=== PATIENT | female | born 1995 | race Caucasian/White ===

== ENCOUNTER 2022-01-09 13:43 | Outpatient (CLI) | payer OTHER, SELFPAY ==
--- NOTE | 2022-01-09 14:00 | CRLHL7_ITS ---
For Patients: As a result of the Cures Act, medical imaging exams and procedure reports are released immediately into your electronic medical record. You may view this report before your referring provider. If you have questions, please contact your health care provider. INDICATION: First trimester scan, establish dates. COMPARISON: None. TECHNIQUE: Real-time vidal-scale imaging of the pelvis was performed. FINDINGS: Sonographic imaging demonstrates a single living intrauterine gestation. The embryo demonstrates a regular cardiac rate measuring 180 beats per minute. The embryo`s crown-rump length measurement of 2.5 cm corresponds to a gestational age of 9 weeks 1 day with a sonographic due date of 08/13/2022. There is a normal-appearing yolk sac. There are no gross abnormalities noted within the embryo at this early state of development. The gestational sac has a normal appearance. There is no evidence of a perigestational hemorrhage. The amount of fluid within the sac appears appropriate for gestational age. The cervix is closed. The myometrium appears normal. The ovaries are of normal size. Corpus luteal cyst in the right ovary. There are no suspicious fluid collections noted in the cul-de-sac. IMPRESSION: Normal first trimester OB ultrasound exam. Gestational age calculated at 9 weeks 1 day with a sonographic due date of 08/13/2022. Dictated by Tarik Merino MD @ 01/09/2022 2:43:52 PM (Electronically Signed)
== END 2022-01-09 13:44 | disposition home or self-care (01) ==
LOC: US 13:46
PROVIDERS: Visit Provider Advanced Practice Midwife
DX: Z34.91 Encounter for supervision of normal pregnancy, unspecified, first trimester (principal); Z3A.09 9 weeks gestation of pregnancy
CPT/HCPCS: 76801

== ENCOUNTER 2022-01-10 13:04 | Outpatient (CLI) | payer OTHER, SELFPAY ==
[2022-01-10 18:19] LABS: Hepatitis B Surface Antigen* Negative (Negative)
[2022-01-10 18:28] LABS: HIV 1/2/P24 Combo Screen* Negative (Negative)
[2022-01-10 18:36] LABS: Hepatitis C Virus Antibody* Negative (Negative)
[2022-01-13 00:58] LABS: Rapid Plasma Reagin (RPR) Non Reactive (Non Reactive)
[2022-01-13 04:34] LABS: Rubella Antibody IgG 50.8 IU/mL
== END 2022-01-10 13:05 | disposition home or self-care (01) ==
LOC: NFLDREF 13:05
PROVIDERS: Visit Provider Advanced Practice Midwife
DX: Z34.81 Encounter for supervision of other normal pregnancy, first trimester (principal); Z3A.08 8 weeks gestation of pregnancy
CPT/HCPCS: 86592; 86703; 86762; 86787; 86803; 86850; 86900; 86901; 87086; 87340

== ENCOUNTER 2022-04-07 10:45 | Outpatient (CLI) | payer OTHER, SELFPAY ==
--- NOTE | 2022-04-07 11:00 | CRLHL7_ITS ---
For Patients: As a result of the Century Cures Act, medical imaging exams and procedure reports are released immediately into your electronic medical record. You may view this report before your referring provider. If you have questions, please contact your health care provider. INDICATION: Evaluate anatomy. COMPARISON: 01/09/2022 TECHNIQUE: Real time vidal scale imaging of the fetus was performed as well as color Doppler analysis of the umbilical vessels. FINDINGS: Sonographic imaging demonstrates a single living intrauterine gestation. Fetus demonstrates abnormal cardiac activity with numerous decelerations and pauses lasting 5-10 seconds. Average heart rate 123 beats per minute. Fetus has a variable position. The placenta lies anteriorly without evidence of placenta previa. The edge of the placenta is located 4.6 cm from the internal cervical os. Amniotic fluid volume appears normal. Single deepest vertical pocket: 4.9 cm. The cervix is closed and measures 3.9 cm in length. The composite ultrasound gestational age is calculated at 21 weeks 4 days with an estimated sonographic due date of 08/14/2022. The estimated weight is 445 grams which lies at the 68th %. The following biometric measurements were obtained: Biparietal diameter: 5.0 cm/21 weeks 0 days 39th% Head circumference: 18.9 cm/21 weeks 2 days 37th% Abdominal circumference: 16.6 cm/21 weeks 5 days 56th% Femur length: 3.8 cm/22 weeks 0 days 65th% The HC/AC ratio measures: 1.14 range (1.06-1.24) On anatomic survey, there is a normal appearance of the cerebral ventricles, cavum septi pellucidi, cisterna magna and cerebellum. The nose, lips, and facial profile appear normal. The cervical, thoracic and lumbar spine are well visualized and appear normal. There is a normal four-chamber heart view and the left and right ventricular outflow tracts appear normal. The diaphragm and stomach appear normal. The kidneys and bladder also appear normal. There is a normal three-vessel cord and there is an eccentric cord insertion site located 2.7 cm from the right edge of the placenta. The four extremities appear normal. IMPRESSION: cardiac activity demonstrated numerous decelerations during the exam along with pauses lasting 5-10 seconds. Emergent sub specially referral for cardiac ECHO recommended. This was communicated to the referring provider by the animal nutritionist. Anatomic survey normal. Concordant dates. Dictated by Tarik Merino MD @ 04/07/2022 12:56:48 PM (Electronically Signed)
== END 2022-04-07 10:46 | disposition home or self-care (01) ==
LOC: US 10:46
PROVIDERS: Visit Provider Advanced Practice Midwife
DX: O36.8320 Maternal care for abnormalities of the fetal heart rate or rhythm, second trimester, not applicable or unspecified (principal); Z3A.21 21 weeks gestation of pregnancy
CPT/HCPCS: 76805; 86235

== ENCOUNTER 2022-06-20 08:08 | Outpatient (CLI) | payer OTHER, SELFPAY ==
[2022-06-22 05:09] LABS: Rapid Plasma Reagin (RPR) Non Reactive (Non Reactive)
== END 2022-06-20 08:09 | disposition home or self-care (01) ==
LOC: NFLDREF 08:09
PROVIDERS: Visit Provider Advanced Practice Midwife
DX: Z34.93 Encounter for supervision of normal pregnancy, unspecified, third trimester (principal); Z3A.31 31 weeks gestation of pregnancy
CPT/HCPCS: 86592

== ENCOUNTER 2022-07-14 12:01 | Outpatient (CLI) | payer OTHER, SELFPAY ==
[2022-07-15 11:29] LABS: Strep B DNA Probe NEGATIVE (Negative)
[2022-07-15 13:27] LABS: Strep B Pen/Amox Allergy No
== END 2022-07-14 12:02 | disposition home or self-care (01) ==
LOC: NFLDREF 12:01
PROVIDERS: Visit Provider Advanced Practice Midwife
DX: Z34.93 Encounter for supervision of normal pregnancy, unspecified, third trimester (principal); Z3A.35 35 weeks gestation of pregnancy
CPT/HCPCS: 87081; 87653

== ENCOUNTER 2022-08-14 21:50 | Inpatient (IN) | payer OTHER, SELFPAY ==
[2022-08-14] VITALS (17 sets, daily range): BP systolic 95–133; BP diastolic 51–79; PULSE 16–94; TEMP 36.8; O2SAT 97–100
[2022-08-14] MEDS: LACTATED RINGERS 1000 ML 1,000 ML 925 ML IV (22:40)
[2022-08-14] MEDS: ROPIVACAINE 0.2% 100 ml 100 ML 12 MG EPIDURAL (23:25)
[2022-08-14] MEDS: LIDOCAINE 2% (PF) 5 ML VIAL EPIDURAL (23:25)
--- NOTE | 2022-08-14 23:36 | P.ANBPRC_ITS ---
[facility] Medical History (Updated 04/07/22 @ 14:14 by Altagracia Taylor CNM) Kidney stones care Surgical History Hx of wisdom tooth extraction Family History Maternal Grandmother Diabetes Paternal Grandmother Diabetes Social History (Updated 08/14/22 @ 11:57 by Annette Dacosta MD) Narrative: Lives in [facility] with Significant other: Miguel, Chrissy Cervantes Lives with partner and daughter Jidd-we-txkb parent no tob / ETOH / ilicits What is your current living situation: I presently have a place to live Problems where you live: no known problems In the past 12 months, utilities in danger of being shut off: no In past 12 months, lack of transportation kept you from medical appts, meetings, work, or getting things needed for daily living: No How hard is it for you to pay for the very basics like food, housing, medical care, and heating: not very hard Past 12 mos, fear food will run out before able to buy more: never true In past 12 months, food didn't last until money to buy more: never true Are you following a diet prescribed by a doctor: No Are you following a special diet: No Do you want help finding or keeping work or a job: I do not need or want help 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 Highest level of school completed/degree received: high school graduate Physical activity type: walking How many days of moderate to strenuous exercise, like a brisk walk, did you do in the last 7 days: 7 Smoking Status: Never smoker Do you use any of these nicotine containing products: None Nicotine containing products detail: History of e-cig, just in high school Second hand tobacco smoke exposure: No How often do you have a drink containing alcohol: never AUDIT-C Alcohol total score: 0 Non-prescribed substance use: denies use Non-prescribed substance use details: Alcohol casually prior to Caffeine: Yes (1 cup per day) Are you now , , , , never or living with a partner: living with partner In a typical week, how many times do you talk on the telephone with family, friends, or neighbors: three or more times per week How often do you get together with friends or relatives?: twice per week How often do you attend presybeterian or pentecostalism services?: decline to answer Do you belong to any clubs or organizations such as presybeterian groups unions, [employer] or athletic groups, or school groups?: no Social isolation score (0-1 are the most socially isolated patients): 2 Within the last year, have you been humiliated or emotionally abused in other ways by your partner or ex-partner: no Within the last year, have you been afraid of your partner or ex-partner: no Within the last year, have you been raped or forced to have any kind of sexual activity by your partner or ex-partner: no Within the last year, have you been kicked, hit, slapped, or otherwise physically hurt by your partner or ex-partner: no HARK total score: 0 Firearms in home: yes Firearms in home details: Lock away Do you need help with ADLs: I don't need any help Due to a physical, mental, or emotional condition, do you have difficulty doing errands alone such as visiting a doctor's office or shopping: No Little interest or pleasure in doing things: not at all Feeling down, depressed, or hopeless: not at all Are you currently sexually active: Yes Are you using contraception or practicing any form of control: No Meds Home Medications and Allergies Home Medications Medication Instructions Recorded Confirmed Type prenat.vits,nina,xxf-ojpu-eolsi 1 tab PO QDAY 01/09/22 08/14/22 History calcium carbonate 500 mg calcium 500 mg PO BID 08/07/22 08/14/22 History (1,250 mg) chewable tablet Allergies Allergy/AdvReac Type Severity Reaction Status Date / Time No Known Drug Allergies Allergy Verified 08/14/22 11:12 Results Vital Signs Vital Signs: Last Vital Signs Temp 98.2 F 08/14/22 21:32 Pulse 94 08/14/22 23:32 BP 111/56 L 08/14/22 23:32 Pulse Ox 97 08/14/22 23:29 Anesthesia Procedures Epidural Insertion Patient Location: OB Start Time: 22:45 Stop Time: 23:45 Start Date: 08/14/22 Stop Date: 08/14/22 Reason for Block: procedure for pain Patient Position: sitting Performed By: Peace Santamaria Preanesthetic Checklist: IV checked, risks and benefits discussed, surgical consent, monitors and equipment checked, pre-op evaluation, timeout performed and anesthesia consent Prep: chlorhexidine gluconate Monitoring: blood pressure monitoring, continuous pulse oximetry and heart rate Approach: midline Vertebral Space: lumbar (1-5) Epidural Technique: EMMA saline Needle Type: Tuohy needle Injection Technique: continuous catheter (continuous catheter) Needle gauge: 17 Needle Length (cm): 10 cm Needle Insertion Depth (cm): 7 Catheter Gauge: 19 Catheter Type: multi-orifice Catheter at skin depth (cm): 15 Test Dose Result: negative and lidocaine 1.5% with epinephrine 1 to 200,000
[2022-08-14] MEDS: LACTATED RINGERS 1000 ML 1,000 ML 125 ML IV (23:48)
[2022-08-15] VITALS (59 sets, daily range): BP systolic 83–143; BP diastolic 49–89; PULSE 65–121; RESP 15–18; TEMP 36.6–37.6; O2SAT 96–97; BMI 32.5
[2022-08-15 00:27] LABS: SARS PCR* Negative SARS-CoV-2 (Negative)
--- NOTE | 2022-08-15 01:21 | P.OBPN_ITS ---
Subjective Time Seen by Provider: 01:21 Date Seen: 08/15/22 Objective Vital Signs: Last Vital Signs Temp 98.2 F 08/14/22 21:32 Pulse 100 08/15/22 01:19 BP 111/53 L 08/15/22 01:19 Pulse Ox 97 08/14/22 23:29 Pelvic Exam Dilation (cm): 5 Effacement (%): 90 Station: -2 Contractions Monitor mode: External Contraction Frequency: q3 minutes Contraction pattern: Regular Contraction intensity: Moderate Assessment Status: Category l Nursing Home Variability: Moderate (6-25) Monitor Accelerations: Present Monitor Decelerations: None Maternal Status: Patient finally comfortable with epidural in place. Is happy she has reprieve fr om contraction pain. Would like to see if she can labor without pitocin and SROM on her own at this time. She is amenable to starting pitocin and AROM if her next check remains unchanged. Will recheck in 4 hours or sooner if indicated.
[2022-08-15] MEDS: ONDANSETRON 2 MG/ML inj 4 MG IV (05:30)
--- NOTE | 2022-08-15 05:39 | PM.OBPNL ---
Subjective Time Seen by Provider: 05:15 Date Seen: 08/15/22 Objective Vital Signs: Last Vital Signs Temp 98.6 F 08/15/22 03:12 Pulse 77 08/15/22 05:34 Resp 15 08/15/22 03:12 BP 105/63 08/15/22 05:34 Pulse Ox 97 08/14/22 23:29 Pelvic Exam Dilation (cm): 7 Effacement (%): 90 Station: -1 Contractions Monitor mode: External Contraction Frequency: q3 Contraction pattern: Regular Contraction intensity: Moderate Pitocin Rate (mU/min): 0 Assessment Assessment: active labor Station: -1 Amniotic Membrane Status: AROM Status: Category ll Heart Rate Baseline: 140 [employer] Variability: Moderate (6-25) Monitor Accelerations: Present Monitor Decelerations: Late Tracing Comments: Rare late decels corresponding with soft BP. LR bolus initiated with good recovery. Labor Progress: AROM performed at 0515. Patient is ok with pitocin PRN. Maternal Status: Endorses nausea. Epidural is working well. Patient is comfortable, unable to feel her contractions or any perineal pressure currently. Plan Plan: - Patient in active labor - Pitocin PRN
[2022-08-15] MEDS: LACTATED RINGERS 1000 ML 1,000 ML 125 ML IV (07:23)
[2022-08-15] MEDS: ROPIVACAINE 0.2% 100 ml 100 ML 12 MG EPIDURAL (07:29)
[2022-08-15] MEDS: OXYTOCIN 30 unit/500 ML in NS 30 UNIT/500 ML BAG 300 UNIT IVPB (10:39)
[2022-08-15] MEDS: LIDOCAINE 1 % PF 30 ML INJECTION (10:43)
--- NOTE | 2022-08-15 10:55 | W.PM.VAGDEL1 ---
Procedure Delivery date: 08/15/22 Procedure Done: [employer] Procedure Details: The patient is a 26 year-old G 2 P 1-0-0-1 woman admitted on 08/14/2022 at 39 Weeks, 5 Days gestation for labor.? Cervical exam on admission was 5.5 cm/90 % effaced/0 station with membranes intact in vertex presentation.? Contractions were every 2-5 minutes.? heart rate demonstrated baseline 150 bpm with moderate variability, positive accelerations, no decelerations; a category 1 tracing.? Labor onset:? 9:11 p.m. on 08/14/2022 ? Labor Analgesia:? Epidural AROM occurred at 5:23 a.m. on 08/15/2022 with clear fluid. ? Pitocin:? No ? Complete:? 8:45 a.m. ? Pushing:? Patient tried to push a few times at 8:45 a.m. but did not have the urge to push and was not moving vertex. Passive descent of head was allowed. She again began pushing 9:57 a.m.. ? heart tones during second stage were notable for increased baseline of 160. ? At 10:37 a.m. a viable female infant delivered in vertex BERTHA presentation over small first-degree perineal laceration via spontaneous vaginal delivery.? was placed on maternal abdomen.? Cord was clamped and cut after it ceased to pulse.? Nose and mouth were bulb suctioned.? weight pending.? 8 at 1 minute and 9 at 5 minutes.? Shoulder dystocia: No.? Nuchal cord: No. ? Placenta delivered spontaneously and complete at 10:45 a.m. with a 3 vessel cord. ? Mother and infant were stable after delivery. ? Lacerations:? Small first-degree perineal, repaired with 3 interrupted sutures of 3-0 Vicryl after infiltration with a small amount of 1% lidocaine. ? Blood loss: 50 mL. Blood loss measurement type: QBL ? Sponge and needles counts are correct.
[2022-08-16 04:10] VITALS: BP 104/67; PULSE 95; RESP 16; TEMP 36.5; O2SAT 98
[2022-08-16 07:13] LABS: Hemoglobin* 11.1 gm/dL (12.0-16.0)
[2022-08-16] MEDS: DOCUSATE SODIUM 100 MG CAPSULE PO (08:04)
--- NOTE | 2022-08-16 08:27 | PM.OBDSVD1 ---
DS: Providers Provider Date Seen: 08/16/22 Date of admission: 08/14/22 21:50 Primary care physician: Not a Local Provider Admitting Clinician: Fartun Galindo MD Attending Physician on discharge: Altagracia Taylor CNM DS: Diagnosis Discharge Diagnosis (1) care and examination immediately after delivery: Status: Acute (2) Lactating mother: Status: Acute Exam Narrative: Exam Narrative: GENERAL APPEARANCE:? normal affect, alert, no distress? MOOD:? appropriate? CHEST:? clear to auscultation? HEART:? regular rate and rhythm? ABDOMEN:? soft, non-tender the uterine fundus is 2 cm below Umbilicus, Midline and is appropriate for the stage of recovery.? PERINEUM:? mild edema of the perineum, there is a Perineal Laceration,? 1st degree, that is healing well.? EXTREMITIES:? normal and [] edema? Const: Vital Signs, click to edit/add: Vital Signs - 24 hr 08/15/22 08:35 08/15/22 08:49 08/15/22 08:56 Temperature 99.6 F Pulse Rate 93 121 H Pulse Rate [Pulse Oximeter] Respiratory Rate 16 Blood Pressure 122/75 143/89 H Blood Pressure [Le ft Arm] Pulse Oximetry Oxygen Delivery Ms thod 08/15/22 09:05 08/15/22 09:19 08/15/22 09:34 Temperature Pulse Rate 81 74 95 Pulse Rate [Pulse Oximeter] Respiratory Rate Blood Pressure 117/72 114/71 116/66 Blood Pressure [Le ft Arm] Pulse Oximetry Oxygen Delivery Ms thod 08/15/22 09:49 08/15/22 10:19 08/15/22 10:21 Temperature Pulse Rate 97 97 90 Pulse Rate [Pulse Oximeter] Respiratory Rate Blood Pressure 117/81 129/83 128/74 Blood Pressure [Le ft Arm] Pulse Oximetry Oxygen Delivery Ms thod 08/15/22 10:36 08/15/22 10:48 08/15/22 11:03 Temperature Pulse Rate 85 91 96 Pulse Rate [Pulse Oximeter] Respiratory Rate Blood Pressure 128/68 134/65 125/64 Blood Pressure [Le ft Arm] Pulse Oximetry Oxygen Delivery Ms thod 08/15/22 11:18 08/15/22 11:33 08/15/22 11:48 Temperature Pulse Rate 90 82 85 Pulse Rate [Pulse Oximeter] Respiratory Rate Blood Pressure 126/62 126/63 126/68 Blood Pressure [Le ft Arm] Pulse Oximetry Oxygen Delivery Me thod 08/15/22 12:03 08/15/22 12:18 08/15/22 12:33 Temperature Pulse Rate 82 78 80 Pulse Rate [Pulse Oximeter] Respiratory Rate Blood Pressure 119/63 128/63 131/64 Blood Pressure [Le ft Arm] Pulse Oximetry Oxygen Delivery Me thod 08/15/22 12:35 08/15/22 15:36 08/15/22 19:15 Temperature 99 F 98.8 F 98.2 F Pulse Rate Pulse Rate [Pulse Oximeter] 95 91 Respiratory Rate 16 18 16 Blood Pressure Blood Pressure [Le ft Arm] 121/72 118/70 Pulse Oximetry 96 97 Oxygen Delivery Me thod Room Air Room Air 08/15/22 23:45 08/16/22 04:10 Temperature 98 F 97.7 F Pulse Rate Pulse Rate [Pulse Oximeter] 85 95 Respiratory Rate 16 16 Blood Pressure Blood Pressure [Le ft Arm] 110/68 104/67 Pulse Oximetry 96 98 Oxygen Delivery Me thod Room Air Room Air OB - DS: Summary Hospital Course Hospital Course: The patient is a 26 year old G 2 P 2 at 40 0/7 weeks gestation that was admitted to the Center on 08/14/22 for spontaneous onset of labor. She had an uncomplicated vaginal delivery. She delivered a viable female infant. She is [breast/bottle] feeding. the patient has done well. The patient feels well.?The pain is well controlled with current medications. She has no new complaints.? Urinary output is adequate and she is voiding without difficulty. Has a good appetite, is tolerating a general diet, is passing flatus, and has not yet had a bowel movement.? Has small amount of rubra lochia.?She is ambulating well. She is and reports it is going ok. She does desire to continue to work on her skills and see today.?? Peripartum Data delivery method: Vaginal Laceration description: Perineal - 1st Degree [place] Infant Gender: Female Discharge Plan: Home Status at Discharge Functional status at discharge: independent ambulation Overall status at discharge: patient is progressing back to baseline Time Spent with Patient Time attestation: Total time spent providing and/or coordinating discharge services: Time spent: Less than 30 minutes Discharge Plan Discharge Disposition: Home, Self-Care Date of Admission: 08/14/22 21:50 Attending Provider on Discharge: Altagracia Taylor Primary Care Provider: Provider,Not a Local Condition: Stable Anticipated Discharge Date/Time: 08/16/22 12:00 Discharge Medications: New acetaminophen 500 mg Tablet 1,000 mg PO Q6H PRNQty: 0 0RF docusate sodium 100 mg Capsule 100 mg PO DAILY Qty: 0 0RF ibuprofen 600 mg Tablet 600 mg PO Q6H PRNQty: 60 0RF Continued prenat.vits,nina,ghe-pmcy-azxog Tablet 1 tab PO QDAY calcium carbonate 500 mg calcium (1,250 mg) tablet,chewable 500 mg PO BID Discharge Orders: Discharge Order (Routine); Ordered 08/16/22 Ordered By: Altagracia Taylor Patient Education: OB Over the Counter Medication Information, OB Vaginal/Breast Feeding Additional Instructions: Discharge instructions were reviewed with the patient including signs and symptoms of infection and home going medications Nothing vaginally for 6 weeks: no tampons or intercourse Off Work or School for 6 weeks 2-week visit: discuss infant feeding concerns, review control options and screen for anxiety/depression. 6-week visit for an annual exam. consultation services are available to all mothers and babies for the first year after delivery.? To make an appointment, please call [phone]. Activity Level: Activity as Tolerated Discharge Diet: Regular Follow Up Appointments: [facility] [Provider Group] (2 week and 6 week visit) Forms: [employer] Info Instructions
--- NOTE | 2022-08-16 10:15 | W.PM.LDBA ---
Subjective History of Present Illness Time Seen by Provider: 11:00 Date Seen: 08/14/22 Narrative: Patient is being admitted to Labor and Delivery for augmentation of labor. She is a 26 year old at weeks gestation. Her full history and physical was dictated by Dr. Dacosta on 08/14/2022. Please see this for details. Patient was 4 cm in clinic and had her membrane stripped on 08/14. She presents for increased contractions and was found of be 5.5 cm on presentation requesting epidural. OB - Problem Based A/P Additional Plan (1) Spontaneous onset of labor: Status: Acute Plan - Will admit for epidural placement and augmentation of labor as needed. OB Exam Physical Exam Vital signs: Temp Pulse Resp BP Pulse Ox O2 Del Method 97.7 F 95 16 104/67 98 08/16/22 04:10 08/16/22 04:10 08/16/22 04:10 08/16/22 04:10 08/16/22 04:10 08/16/22 04:10 Narrative: Physical exam: General: In labor pain Psych: Alert and oriented x3, full affect Heart: Regular rate and rhythm, no murmur rub or gallop Lungs: Clear to auscultation bilaterally Abdomen: Gravid. Soft without tenderness in between contractions. Lower extremities: No edema or erythema Pelvic exam: SVE 5.5/90/-2
[2022-08-16 12:43] VITALS: BP 110/69; PULSE 96; RESP 18; TEMP 36.6; O2SAT 99
== END 2022-08-16 13:20 | disposition home or self-care (01) | DRG 807 ==
PROVIDERS: Obstetrics & Gynecology; Admitting Provider Obstetrics & Gynecology; Visit Provider Obstetrics & Gynecology
DX: O70.0 First degree perineal laceration during delivery (principal); Z37.0 Single live birth; Z3A.39 39 weeks gestation of pregnancy
CPT/HCPCS: 01967; 36415; 85018; 87635; 99213; A9270; J2001; J2370; J2405; J2795; J7120